=== PATIENT | male | born 1990 | race Caucasian/White ===

== ENCOUNTER 2016-03-23 21:38 | Emergency (ER) | payer SELFPAY ==
[2016-03-23] MEDS ORDERED: EPINEPHrine 1 MG/ML AMP ONE (21:42)
[2016-03-23] MEDS ORDERED: diphenhydrAMINE HCl 50 MG/ML 1 ML VIAL ONE (21:49)
[2016-03-23] MEDS ORDERED: methylPREDNISolone Sod Succ/PF 125 MG/2 ML VIAL ONE (21:49)
[2016-03-23] MEDS ORDERED: Famotidine In NaCl 20 mg/50 ml Premix Bag ONE (22:00)
--- NOTE | 2016-03-24 00:21 | ERRECORD ---
[facility] EMERGENCY RECORD HPI ALLERGY (21:57 LHOD) CHIEF COMPLAINT: Patient presents for evaluation of itching, Patient presents for evaluation of swelling, Patient presents for evaluation of rash. HISTORIAN: History provided by patient. TIME COURSE: PAST 10 MINUTES PT WAS SITTING WATCHING A MOVIE WHEN HE SUDDENLY HAD RASH, ITCHING AND SWELLING OF HIS LOWER LIP. DENIES PREVIOUS ALLERGIC REACTION. IS NOT AWARE ANYTHING STUNG HIM. NO NEW MEDICATION. ROS (22:03 LHOD) CONSTITUTIONAL: Historian denies fever. ENT: LOWER LIP SWELLING. CARDIOVASCULAR: Historian denies chest pain, reports edema. RESPIRATORY: Historian reports cough, denies shortness of breath. GI: Historian denies abdominal pain, denies nausea, denies vomiting. MUSCULOSKELETAL: Historian denies back pain, denies neck pain. SKIN: Historian reports pruritis, reports rash. NEUROLOGIC: Historian denies headache. HEMO/LYMPHATIC: Historian denies easy bruising. ALLERGIC/IMMUNOLOGIC: Historian denies food allergies, reports hives. NOTES: All systems reviewed, negative except as described above. PAST MEDICAL HISTORY MEDICAL HISTORY: No past medical history. (21:50 LPOL) MALE SURGICAL HISTORY: Patient has no surgical history. (21:50 LPOL) SOCIAL HISTORY: Patient is a former tobacco user, smoked cigarettes. (21:50 LPOL) NOTES: Nursing records reviewed. (22:04 LHOD) KNOWN ALLERGIES No Known Allergies CURRENT MEDICATIONS No recorded medications VITAL SIGNS VITAL SIGNS: BP: 143/73, Pulse: 117, Resp: 27, Temp: 98.9 (Oral), Time: 03/23/2016 21:48. (21:48 LPOL) BP: 143/79, Pulse: 99, Resp: 19, O2 sat: 97 on Room Air, Time: 03/23/2016 22:11. (22:11 LPOL) BP: 141/74, Pulse: 103, Resp: 17, O2 sat: 97 on Room Air, Time: 03/23/2016 22:29. (22:29 LPOL) BP: 126/70, Pulse: 100, Resp: 19, O2 sat: 97 on Room Air, Time: 03/23/2016 23:03. (23:03 LPOL) &a-1R&a+25V*p+0X*e9957T*c202B*c15G*c2P*p-0X&a-25V&a+1R Name: Coleman Beck : 1990 M26 MedRec: [id number] AcctNum: [id number] Prepared: ThuMar 24, 2016 01:52 by Interface Page 1 of 3 pMD [facility] EMERGENCY RECORD BP: 125/70, Pulse: 98, Resp: 18, O2 sat: 97 on Room Air, Time: 03/23/2016 23:33. (23:33 LPOL) PHYSICAL EXAM (22:04 LHOD) CONSTITUTIONAL: Vital Signs Reviewed, Patient afebrile, Pulse, tachycardic, Blood pressure normal, Respiratory rate, increased, Normal pulse oximetry, Patient alert and oriented to person, place and time. EYES: Pupils equally round and reactive to light, Extraocular muscles intact. ENT: Uvula, with mild edema, midline, LOWER LIP EDEMA. NECK: Neck exam included findings of normal range of motion, Trachea midline. RESPIRATORY CHEST: Respiratory exam included findings of no respiratory distress, Breath sounds clear, OCCASIONAL DRY COUGH. CARDIOVASCULAR: Cardiovascular exam included findings of heart rate regular rate and rhythm, Heart sounds normal. ABDOMEN MALE: Abdominal exam included findings of abdomen nontender. SKIN: Rash present, hives, URTICARIA COVERING FACE, TORSO, ARMS AND LEGS. UPPER BACK PT HAD SCRATCHED UNTIL IT BLED. MEDICATION ADMINISTRATION SUMMARY Drug Name: Zantac injection, Dose Ordered: 50 mg, Route: IV Push, Status: Canceled, Time: 22:01 03/23/2016, Drug Name: diphenhydrAMINE injection, Dose Ordered: 12.5 mg, Route: IV Push, Status: Given, Time: 22:34 03/23/2016, Drug Name: EPINEPHrine injection, Dose Ordered: 0.2 mL, Route: Subcutaneous, Status: Given, Time: 22:08 03/23/2016, Drug Name: Pepcid intravenous, Dose Ordered: 20 mg, Route: IV Piggy Back, Status: Given, Time: 22:04 03/23/2016, Drug Name: diphenhydrAMINE injection, Dose Ordered: 12.5 mg, Route: IV Push, Status: Given, Time: 21:52 03/23/2016, Drug Name: EPINEPHrine injection, Dose Ordered: 0.3 mL, Route: Subcutaneous, Status: Given, Time: 21:51 03/23/2016, Drug Name: methylPREDNISolone sodium succ injection, Dose Ordered: 125 mg, Route: IV Push, Status: Given, Time: 21:50 03/23/2016, Detailed record available in Medication Service section. DOCTOR NOTES (22:12 LHOD) TEXT: 2211--PT'S LIP LESS SWOLLEN. SOME DECREASE OF URTICARIA. 2229--PT'S STILL HAS URTICARIA, BUT MARKEDLY DIMINISHED SWELLING. 2302--CONTINUES TO IMPROVE. GIVEN APPLE JUICE. RESTING. UNKNOWN SOURCE OF PT'S ALLERGIC REACTION. NO KNOWN HX OF SHELLFISH, PEANUT OR OTHER ALLERGY. NO RECENT MEDICATION. &a-1R&a+25V*p+0X*j0312B*c202B*c15G*c2P*p-0X&a-25V&a+1R Name: Coleman Beck : 1990 M26 MedRec: [id number] AcctNum: [id number] Prepared: ThuMar 24, 2016 01:52 by Interface Page 2 of 3 pMD [facility] EMERGENCY RECORD PROBLEM LIST No recorded problems DIAGNOSIS (23:37 LHOD) FINAL: PRIMARY: ACUTE ALLERGIC REACTION WITH URTICARIA AND ANGIOEDEMA. PRESCRIPTION predniSONE oral: TABLET : 20 mg : ORAL : Quantity: 2 Unit: tab(s) Route: ORAL Schedule: once a day Dispense: 8 May substitute. Refills: No Refills . (23:38 LHOD) NOTES: No Refills. (23:38 LHOD) Epi E-Z Pen: AUTO-INJECTOR (EA) : 0.3 mg/0.3 mL (1:1,000) : INJECTION : Quantity: 1 Unit: units Route: INJECTION Schedule: As Needed Dispense: 1 May substitute. Refills: No Refills . (23:39 LHOD) NOTES: No Refills. (23:39 LHOD) DISPOSITION PATIENT: Disposition Type: Discharge, Disposition: *Discharge Home, Condition: Improved. (23:37 LHOD) Patient left the department. (23:50 LPOL) Brown: LHOD=MD Óscar, Joey LPOL=ANASTASIA Leon, Perlita &a-1R&a+25V*p+0X*g3178O*c202B*c15G*c2P*p-0X&a-25V&a+1R Name: Coleman Beck : 1990 M26 MedRec: [id number] AcctNum: [id number] Prepared: ThuMar 24, 2016 01:52 by Interface Page 3 of 3 pMD MTDD
--- NOTE | 2016-03-24 00:22 | PICIS ---
[facility] EMERGENCY RECORD TRIAGE (ThuMar 23, 2016 21:49 LPOL) TRIAGE NOTES: allergic reaction, rash and hives dyspnea x 10 minutes. (ThuMar 23, 2016 21:49 LPOL) PATIENT: NAME: Coleman Beck, AGE: 26, GENDER: male, : Thu1990, TIME OF GREET: ThuMar 23, 2016 21:39, PREFERRED LANGUAGE: Malagasy, ETHNICITY: Not or , ECODE BILLING MAP: [facility], KG WEIGHT: 78.02 (est.), , , PERSON ID: [id number], PCP: NO PCP. (ThuMar 23, 2016 21:49 LPOL) Zip Code: [address], PHONE: . (22:28) COMPLAINT: ALLERGIC REACTION. THROAT SWELLING. (ThuMar 23, 2016 21:49 LPOL) ADMISSION: URGENCY: 2 Emergent, ADMISSION SOURCE: Home, TRANSPORT: Walk-in, BED: TRIAGE. ([place] Mar 23, 2016 21:49 LPOL) SIRS SCORING: Heart Rate 110-139 (2), Temp range 96.8-101.1 (0), respiratory rate 12-24 (0), Mental Status altered: no (0), Total SIRS Score 2. (21:50 LPOL) TRIAGE SCREENING: Patient denies suicidal ideation, Patient denies presence of domestic violence. (21:50 LPOL) TREATMENTS IN PROGRESS: Treatments given Prehospital: Benadryl. (21:50 LPOL) PROVIDERS: TRIAGE NURSE: Perlita Leon RN. ([place] Mar 23, 2016 21:49 LPOL) VITAL SIGNS: BP 143/73, Pulse 117, Resp 27, Temp 98.9, (Oral), Time 03/23/2016 21:48. (21:48 LPOL) KNOWN ALLERGIES No Known Allergies CURRENT MEDICATIONS No recorded medications VITAL SIGNS VITAL SIGNS: BP: 143/73, Pulse: 117, Resp: 27, Temp: 98.9 (Oral), Time: 03/23/2016 21:48. (21:48 LPOL) BP: 143/79, Pulse: 99, Resp: 19, O2 sat: 97 on Room Air, Time: 03/23/2016 22:11. (22:11 LPOL) BP: 141/74, Pulse: 103, Resp: 17, O2 sat: 97 on Room Air, Time: 03/23/2016 22:29. (22:29 LPOL) BP: 126/70, Pulse: 100, Resp: 19, O2 sat: 97 on Room Air, Time: 03/23/2016 23:03. (23:03 LPOL) BP: 125/70, Pulse: 98, Resp: 18, O2 sat: 97 on Room Air, Time: 03/23/2016 23:33. (23:33 LPOL) NURSING ASSESSMENT: HEAD-TO-TOE (21:51 LPOL) CONSTITUTIONAL: Gait steady, History obtained from patient, Patient appears, in respiratory distress, Patient cooperative, Patient alert, Oriented to person, place and time, Skin warm, Skin, mottled. PAIN: pressure pain, chest. &a-1R&a+25V*p+0X*b9760K*c202B*c15G*c2P*p-0X&a-25V&a+1R Name: Coleman Beck : 1990 M26 MedRec: [id number] AcctNum: [id number] Prepared: ThuMar 24, 2016 01:59 by Interface Page 1 of 7 pMD [facility] EMERGENCY RECORD SKIN: Skin assessment findings include skin warm, Skin dry, Inspection findings include rash, red, hives, itchy, to generalized, Inspection findings include swelling, to face. NEURO: GCS:, Eye opening: (4) - Spontaneous, Verbal: (5) - Oriented/conversive, Motor: (6) - Obeys commands/Spontaneous, GCS Total: 15. RESPIRATORY/CHEST: Breath sounds clear, Respiratory assessment findings include respiratory effort easy, Respirations regular, Conversing normally, Neck and chest exam findings include trachea midline, Chest expansion equal, Chest movement symmetrical, Signs of distress, in mild distress, Deformity. CARDIOVASCULAR: Heart rhythm, sinus tachycardia. ABDOMEN: Abdomen soft, Bowel sound normal. PSYCH/SOCIAL: Psychiatric/social assessment findings include affect, anxious. NURSING PROCEDURE: DISCHARGE NOTE (23:49 LPOL) DISCHARGE: Patient discharged to home, ambulating without assistance, Summary of Care printed/ provided, Patient requested and was provided an electronic copy of Discharge Instructions, Transition record given to patient, Discharge instructions given to patient, Simple or moderate discharge teaching performed, by prabhakar, Prescriptions given and instructions on side effects given, Name of prescription(s) given: epipen, Above person(s) verbalized understanding of discharge instructions and follow-up care, Patient treated and evaluated by physician. BELONGINGS: Belongings and valuables with patient upon arrival to the Emergency Department include:, Belongings remain with patient, Valuables remain with patient. NURSING PROCEDURE: IV IV SITE 1: IV therapy indicated for medication administration, IV established, to the left hand, using a 20 gauge catheter, Flushed with normal saline (mls): 10, Notes: started by Ely OCONNOR. (22:11 LPOL) FOLLOW-UP SITE 1: IV discontinued, due to patient being discharged, catheter intact. (23:49 LPOL) MEDICATION ADMINISTRATION SUMMARY Drug Name: Zantac injection, Dose Ordered: 50 mg, Route: IV Push, Status: Canceled, Time: 22:01 03/23/2016, Drug Name: diphenhydrAMINE injection, Dose Ordered: 12.5 mg, Route: IV Push, Status: Given, Time: 22:34 03/23/2016, Drug Name: EPINEPHrine injection, Dose Ordered: 0.2 mL, Route: Subcutaneous, Status: Given, Time: 22:08 03/23/2016, Drug Name: Pepcid intravenous, Dose Ordered: 20 mg, Route: IV Piggy &a-1R&a+25V*p+0X*r2578X*c202B*c15G*c2P*p-0X&a-25V&a+1R Name: Coleman Beck : 1990 M26 MedRec: [id number] AcctNum: [id number] Prepared: ThuMar 24, 2016 01:59 by Interface Page 2 of 7 pMD [facility] EMERGENCY RECORD Back, Status: Given, Time: 22:04 03/23/2016, Drug Name: diphenhydrAMINE injection, Dose Ordered: 12.5 mg, Route: IV Push, Status: Given, Time: 21:52 03/23/2016, Drug Name: EPINEPHrine injection, Dose Ordered: 0.3 mL, Route: Subcutaneous, Status: Given, Time: 21:51 03/23/2016, Drug Name: methylPREDNISolone sodium succ injection, Dose Ordered: 125 mg, Route: IV Push, Status: Given, Time: 21:50 03/23/2016, Detailed record available in Medication Service section. MEDICATION SERVICE diphenhydrAMINE injection: Order: diphenhydrAMINE injection (diphenhydramine HCl) - Dose: 12.5 mg : IV Push Ordered by: Joey Cantrell MD Entered by: Joey Cantrell MD [place] Mar 23, 2016 21:50 Documented as given by: ANASTASIA Hidalgo Mar 23, 2016 21:52 Patient, Medication, Dose, Route and Time verified prior to administration. Amount given: 12.5 MG, IV SITE #1 IVP, initial medication, Slowly, Catheter placement confirmed via flush prior to administration, IV site without signs or symptoms of infiltration during medication administration, No swelling during administration, No drainage during administration, IV flushed after administration, Correct patient, time, route, dose and medication confirmed prior to administration, Patient advised of actions and side-effects prior to administration, Allergies confirmed and medications reviewed prior to administration, Patient in position of comfort, Side rails up, Cart in lowest position, Family at bedside. : Follow Up : Response assessment performed, No signs or symptoms of allergic reaction noted, Decreased symptoms, _IV SITE #1:_. (22:09 LPOL) diphenhydrAMINE injection: Order: diphenhydrAMINE injection (diphenhydramine HCl) - Dose: 12.5 mg : IV Push Ordered by: Joey Cantrell MD Entered by: Joey Cantrell MD [place] Mar 23, 2016 22:30 , Acknowledged by: ANASTASIA Riggs Mar 23, 2016 22:32 Documented as given by: ANASTASIA Riggs Mar 23, 2016 22:34 Patient, Medication, Dose, Route and Time verified prior to administration. Amount given: 12.5 g, IV SITE #1 IVP, repeat same medication, Slowly, Awake and alert- acceptable, Catheter placement confirmed via flush prior to administration, IV site without signs or symptoms of infiltration during medication administration, No swelling during administration, No drainage during administration, IV flushed after administration, Correct patient, time, route, dose and medication confirmed prior to administration, Patient advised of actions and side-effects prior to administration, Allergies confirmed and medications reviewed prior to administration. : Follow Up : Response assessment performed, No signs or symptoms of allergic reaction noted, Decreased symptoms, _IV SITE #1:_. (22:57 LPOL) &a-1R&a+25V*p+0X*k5123X*c202B*c15G*c2P*p-0X&a-25V&a+1R Name: Coleman Beck : 1990 M26 MedRec: [id number] AcctNum: [id number] Prepared: ThuMar 24, 2016 01:59 by Interface Page 3 of 7 pMD [facility] EMERGENCY RECORD EPINEPHrine injection: Order: EPINEPHrine injection (epinephrine) - Dose: 0.3 mL : Subcutaneous Ordered by: Joey Cantrell MD Entered by: MD Ursula Abdi Mar 23, 2016 21:49 Documented as given by: ANASTASIA Riggs Mar 23, 2016 21:51 Patient, Medication, Dose, Route and Time verified prior to administration. Amount given: 0.3 mg, Medication administered to right upper arm. : Follow Up : Response assessment performed, No signs or symptoms of allergic reaction noted, Decreased symptoms. (22:10 LPOL) EPINEPHrine injection: Order: EPINEPHrine injection (epinephrine) - Dose: 0.2 mL : Subcutaneous Ordered by: Joey Cantrell MD Entered by: MD Ursula Abdi Mar 23, 2016 22:01 , Acknowledged by: ANASTASIA Riggs Mar 23, 2016 22:03 Documented as given by: ANASTASIA Riggs Mar 23, 2016 22:08 Patient, Medication, Dose, Route and Time verified prior to administration. Amount given: 0.2 ml, Medication administered to left upper arm, Correct patient, time, route, dose and medication confirmed prior to administration, Patient advised of actions and side-effects prior to administration, Allergies confirmed and medications reviewed prior to administration. : Follow Up : Response assessment performed, No signs or symptoms of allergic reaction noted, Decreased symptoms. (22:36 LPOL) methylPREDNISolone sodium succ injection: Order: methylPREDNISolone sodium succ injection (methylprednisolone sod succ) - Dose: 125 mg : IV Push Ordered by: Joey Cantrell MD Entered by: MD Ursula Abdi Mar 23, 2016 21:50 Documented as given by: ANASTASIA Hidalgo Mar 23, 2016 21:50 Patient, Medication, Dose, Route and Time verified prior to administration. Amount given: 125 MG, IV SITE #1 IVP, initial medication, Slowly, Catheter placement confirmed via flush prior to administration, IV site without signs or symptoms of infiltration during medication administration, No swelling during administration, No drainage during administration, IV flushed after administration, Correct patient, time, route, dose and medication confirmed prior to administration, Patient advised of actions and side-effects prior to administration, Allergies confirmed and medications reviewed prior to administration, Patient in position of comfort, Side rails up, Cart in lowest position, Family at bedside. : Follow Up : Response assessment performed, No signs or symptoms of allergic reaction noted, Decreased symptoms, _IV SITE #1:_. (22:10 LPOL) Pepcid intravenous: Order: Pepcid intravenous (famotidine) - Dose: 20 mg : IV Piggy Back &a-1R&a+25V*p+0X*b4866S*c202B*c15G*c2P*p-0X&a-25V&a+1R Name: Coleman Beck : 1990 M26 MedRec: [id number] AcctNum: [id number] Prepared: ThuMar 24, 2016 01:59 by Interface Page 4 of 7 D [facility] EMERGENCY RECORD Ordered by: Joey Cantrell MD Entered by: MD Ursula Abdi Mar 23, 2016 22:02 Documented as given by: ANASTASIA Riggs Mar 23, 2016 22:04 Patient, Medication, Dose, Route and Time verified prior to administration. Amount given: 20 mg, IV SITE #1 IVPB or drip, initial infusion, via primary tubing, Awake and alert- acceptable, Catheter placement confirmed via flush prior to administration, IV site without signs or symptoms of infiltration during medication administration, No swelling during administration, No drainage during administration, IV flushed after administration, Correct patient, time, route, dose and medication confirmed prior to administration, Patient advised of actions and side-effects prior to administration, Allergies confirmed and medications reviewed prior to administration. : Follow Up : Response assessment performed, No signs or symptoms of allergic reaction noted, Decreased symptoms, _IV SITE #1:_, Medication infusion discontinued, on Sun Mar 23, 2016 22:10, 10 minutes, ., Total amount infused: 50, IV Line flushed after administration. (22:10 LPOL) (CANCELED) Zantac injection: Order: Zantac injection (ranitidine HCl) - Dose: 50 mg : IV Push Ordered by: Joey Cantrell MD Entered by: MD Ursula Abdi Mar 23, 2016 21:56 Canceled by: Joey Cantrell MD. [place] Mar 23, 2016 22:01 Cancel reason: Change in medication plan. HPI ALLERGY (21:57 LHOD) CHIEF COMPLAINT: Patient presents for evaluation of itching, Patient presents for evaluation of swelling, Patient presents for evaluation of rash. HISTORIAN: History provided by patient. TIME COURSE: PAST 10 MINUTES PT WAS SITTING WATCHING A MOVIE WHEN HE SUDDENLY HAD RASH, ITCHING AND SWELLING OF HIS LOWER LIP. DENIES PREVIOUS ALLERGIC REACTION. IS NOT AWARE ANYTHING STUNG HIM. NO NEW MEDICATION. ROS (22:03 LHOD) CONSTITUTIONAL: Historian denies fever. ENT: LOWER LIP SWELLING. CARDIOVASCULAR: Historian denies chest pain, reports edema. RESPIRATORY: Historian reports cough, denies shortness of breath. GI: Historian denies abdominal pain, denies nausea, denies vomiting. MUSCULOSKELETAL: Historian denies back pain, denies neck pain. SKIN: Historian reports pruritis, reports rash. NEUROLOGIC: Historian denies headache. HEMO/LYMPHATIC: Historian denies easy bruising. ALLERGIC/IMMUNOLOGIC: Historian denies food allergies, &a-1R&a+25V*p+0X*x3712B*c202B*c15G*c2P*p-0X&a-25V&a+1R Name: Coleman Beck : 1990 M26 MedRec: [id number] AcctNum: [id number] Prepared: ThuMar 24, 2016 01:59 by Interface Page 5 of 7 pMD [facility] EMERGENCY RECORD reports hives. NOTES: All systems reviewed, negative except as described above. PAST MEDICAL HISTORY MEDICAL HISTORY: No past medical history. (21:50 LPOL) MALE SURGICAL HISTORY: Patient has no surgical history. (21:50 LPOL) SOCIAL HISTORY: Patient is a former tobacco user, smoked cigarettes. (21:50 LPOL) NOTES: Nursing records reviewed. (22:04 LHOD) PHYSICAL EXAM (22:04 LHOD) CONSTITUTIONAL: Vital Signs Reviewed, Patient afebrile, Pulse, tachycardic, Blood pressure normal, Respiratory rate, increased, Normal pulse oximetry, Patient alert and oriented to person, place and time. EYES: Pupils equally round and reactive to light, Extraocular muscles intact. ENT: Uvula, with mild edema, midline, LOWER LIP EDEMA. NECK: Neck exam included findings of normal range of motion, Trachea midline. RESPIRATORY CHEST: Respiratory exam included findings of no respiratory distress, Breath sounds clear, OCCASIONAL DRY COUGH. CARDIOVASCULAR: Cardiovascular exam included findings of heart rate regular rate and rhythm, Heart sounds normal. ABDOMEN MALE: Abdominal exam included findings of abdomen nontender. SKIN: Rash present, hives, URTICARIA COVERING FACE, TORSO, ARMS AND LEGS. UPPER BACK PT HAD SCRATCHED UNTIL IT BLED. EVENTS TRANSFER: Triage to Emergency Triage. ([place] Mar 23, 2016 21:49 LPOL) Emergency Triage to Main ED -05. (21:49 LPOL) Removed from Emergency Main ED -05. (23:50 LPOL) DOCTOR NOTES (22:12 LHOD) TEXT: 2211--PT'S LIP LESS SWOLLEN. SOME DECREASE OF URTICARIA. 2229--PT'S STILL HAS URTICARIA, BUT MARKEDLY DIMINISHED SWELLING. 2302--CONTINUES TO IMPROVE. GIVEN APPLE JUICE. RESTING. UNKNOWN SOURCE OF PT'S ALLERGIC REACTION. NO KNOWN HX OF SHELLFISH, PEANUT OR OTHER ALLERGY. NO RECENT MEDICATION. PROBLEM LIST No recorded problems DIAGNOSIS (23:37 LHOD) &a-1R&a+25V*p+0X*d4874M*c202B*c15G*c2P*p-0X&a-25V&a+1R Name: Coleman Beck : 1990 M26 MedRec: [id number] AcctNum: [id number] Prepared: ThuMar 24, 2016 01:59 by Interface Page 6 of 7 pMD [facility] EMERGENCY RECORD FINAL: PRIMARY: ACUTE ALLERGIC REACTION WITH URTICARIA AND ANGIOEDEMA. DISPOSITION PATIENT: Disposition Type: Discharge, Disposition: *Discharge Home, Condition: Improved. (23:37 LHOD) Patient left the department. (23:50 LPOL) INSTRUCTION (23:40 LHOD) DISCHARGE: URTICARIA. FOLLOWUP: Follow up with Primary Care Physician as needed. SPECIAL: MAY CONTINUE BENADRYL 25MG EVERY 4 HOURS NEEDED FOR ITCHING. CONSIDER ALSO TAKING NON-SEDATING ANTI-HISTAMINE LIKE CLARITIN /LORATIDINE. *RETURN IF WORSE. PRESCRIPTION predniSONE oral: TABLET : 20 mg : ORAL : Quantity: 2 Unit: tab(s) Route: ORAL Schedule: once a day Dispense: 8 May substitute. Refills: No Refills . (23:38 LHOD) NOTES: No Refills. (23:38 LHOD) Epi E-Z Pen: AUTO-INJECTOR (EA) : 0.3 mg/0.3 mL (1:1,000) : INJECTION : Quantity: 1 Unit: units Route: INJECTION Schedule: As Needed Dispense: 1 May substitute. Refills: No Refills . (23:39 LHOD) NOTES: No Refills. (23:39 LHOD) IMAGING *DISCHARGE INSTRUCTIONS RECEIPT: Image captured from scanner. (23:48 LPOL) *SUPPLY CHARGE SHEET: Image captured from scanner. (23:49 LPOL) ADMIN (ThuMar 24, 2016 01:47 LHOD) DIGITAL SIGNATURE: MD Cantrell Lefayne. Brown: LHOD=MD Cantrell Lefayne LPOL=ANASTASIA Leon, Perlita &a-1R&a+25V*p+0X*u2440M*c202B*c15G*c2P*p-0X&a-25V&a+1R Name: Coleman Beck : 1990 M26 MedRec: [id number] AcctNum: [id number] Prepared: ThuMar 24, 2016 01:59 by Interface Page 7 of 7 pMD MTDD
== END 2016-03-23 23:47 | disposition home or self-care (01) ==
LOC: MADERS 21:38
DX: T78.3XXA Angioneurotic edema, initial encounter (principal); F17.210 Nicotine dependence, cigarettes, uncomplicated
CPT/HCPCS: 96372; 96374; 96375; 96376; J0171; J1200; J2930

== ENCOUNTER 2016-04-01 13:57 | Emergency (ER) | payer SELFPAY ==
[2016-04-01] MEDS ORDERED: Dexamethasone 4 MG TAB ONE (14:22)
[2016-04-01] MEDS ORDERED: Famotidine 20 MG TAB ONE (14:22)
--- NOTE | 2016-04-01 15:41 | ERRECORD ---
[facility] EMERGENCY RECORD HPI ALLERGY (14:20 ABUS) CHIEF COMPLAINT: Patient presents for evaluation of itching, Patient presents for evaluation of rash. 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 No SOB, lip or tongue swelling, and no apparent exposure to a source. The patient is also having a sore throat. LOCATION: Symptoms are generalized. QUALITY: Dermal only. SEVERITY: Currently symptoms are mild. TIME COURSE: Sudden onset of symptoms, just prior to arrival, Symptoms are constant. ASSOCIATED WITH: No associated symptoms. EXACERBATED BY: Patient's condition exacerbated by nothing. RISK FACTORS: Patient has had previous allergy reactions, 1-2 weeks ago. ROS (14:22 ABUS) CONSTITUTIONAL: Negative constitutional review of systems, Historian denies chills, denies fever. ENT: Historian denies drooling, denies dysphonia, denies otalgia, denies rhinorrhea, reports sore throat, denies stridor, denies voice changes. CARDIOVASCULAR: Negative cardiovascular review of systems, Historian denies chest pain, denies palpitations. RESPIRATORY: Negative respiratory review of systems, Historian denies cough, denies shortness of breath. GI: Negative gastrointestinal review of systems, Historian denies abdominal pain, denies constipation, denies diarrhea, denies nausea, denies vomiting. MUSCULOSKELETAL: Negative musculoskeletal review of systems, Historian denies back pain, denies fall, denies injury, denies neck pain. SKIN: Historian reports rash, reports skin changes, denies skin lesions. NEUROLOGIC: Negative neurologic review of systems, Historian denies headache. PAST MEDICAL HISTORY (14:04 SFRE) MEDICAL HISTORY: No past medical history. MALE SURGICAL HISTORY: Patient has no surgical history. SOCIAL HISTORY: Patient is a former tobacco user, smoked cigarettes. KNOWN ALLERGIES No Known Allergies CURRENT MEDICATIONS No recorded medications &a-1R&a+25V*p+0X*e7122H*c202B*c15G*c2P*p-0X&a-25V&a+1R Name: Coleman Beck : 1990 M26 MedRec: [id number] AcctNum: [id number] Prepared: barbara Apr 01, 2016 17:02 by Interface Page [address] [facility] EMERGENCY RECORD VITAL SIGNS (14:02 SFRE) VITAL SIGNS: BP: 137/69, Pulse: 106, Resp: 18, Temp: 99.2 (Tympanic), Pain: 8 (not applicable), O2 sat: 99 on Room Air, Time: 04/01/2016 14:02. PHYSICAL EXAM CONSTITUTIONAL: Vital signs reviewed, Patient afebrile, Pulse normal, Blood pressure normal, Respiratory rate normal, Patient appears non toxic, Patient appears pain free, Patient alert and oriented to person, place and time. (14:22 ABUS) ENT: Ear exam normal, external ear normal, tympanic membranes normal, Nose exam normal, no nasal deformity, no bleeding from nares, Pharynx exam normal, Uvula exam normal, midline, no edema, Tonsils, enlarged right greater than left, without exudates, No trismus, Mouth exam normal, mucous membranes moist, no drooling, no lesions, no lacerations, no tongue elevation, teeth normal, Sinus exam included findings of frontal sinuses normal, no tenderness. (14:23 ABUS) NECK: Neck exam normal, Neck exam included findings of normal range of motion, Trachea midline, no meningeal signs, no cervical adenopathy, no tenderness. (14:22 ABUS) RESPIRATORY CHEST: Respiratory and chest exam normal, Respiratory exam included findings of no respiratory distress, Breath sounds clear. (14:22 ABUS) CARDIOVASCULAR: Cardiovascular assessment normal, Cardiovascular exam included findings of heart rate regular rate and rhythm, Heart sounds normal. (14:22 ABUS) ABDOMEN MALE: Abdominal exam included findings of abdomen nontender, Bowel sounds normal, no distension, no mass, no pulsatile masses, no peritoneal signs, no rigidity, no guarding, no rebound, Rovsing's sign absent. (14:22 ABUS) BACK: Back exam normal, Back exam included findings of normal inspection, range of motion normal, no tenderness. (14:22 ABUS) NEURO: Neuro exam normal, Neuro exam findings include patient oriented to person, place and time, Speech normal, Gait normal. (14:22 ABUS) SKIN: Skin exam included findings of skin warm, Rash present, hives, No cellulitis present. (14:22 ABUS) MEDICATION ADMINISTRATION SUMMARY Drug Name: famotidine oral, Dose Ordered: 40 mg, Route: Oral, Status: Given, Time: 14:25 04/01/2016, Drug Name: dexamethasone, Dose Ordered: 10 mg, Route: Oral, Status: Given, Time: 14:25 04/01/2016, Detailed record available in Medication Service section. DOCTOR NOTES (14:23 ABUS) TEXT: 26 yr old M with no PMH who comes in with reports of &a-1R&a+25V*p+0X*q4508T*c202B*c15G*c2P*p-0X&a-25V&a+1R Name: Coleman Beck : 1990 M26 MedRec: [id number] AcctNum: [id number] Prepared: Nanci Apr 01, 2016 17:02 by Interface Page [address] 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 DDX: Anaphylaxis, Allergies, Allergic Rhinitis, Dry Skin, Eczema, Cellulitis, PLAN: Benadryl, H2RA, Steroids, Monitoring DISPO: Pending results and response to treatment UPDATE/REASSESSMENT: Rash and itching improved. Patient wants to go home and feels better. Final Dispo: Home with abx for pharyngitis, steroids, follow up and return precautions and also counseling on how to use a EPI pen and importance of proper technique which the patient verbalized understanding and agreement. All other pertinent results of testing and evaluation were shared with the patient who verbalized understanding and agreement with the plan of care. Level of Complexity / Medical Decision Making: Moderate High. PROBLEM LIST No recorded problems DIAGNOSIS (15:19 ABUS) FINAL: PRIMARY: Allergic reaction, ADDITIONAL: URTICARIA UNSPECIFIED. PRESCRIPTION (15:18 ABUS) amoxicillin: CAPSULE : 500 mg : ORAL : Quantity: 1 Unit: cap(s) Route: ORAL Schedule: 3 times a day Dispense: 21 Unit: cap(s) May substitute. Refills: No Refills . NOTES: No Refills. predniSONE oral: TABLET : 20 mg : ORAL : Quantity: 40 Unit: mg Route: ORAL Schedule: once a day Dispense: * May substitute. Refills: No Refills . NOTES: enough for 4 days. No refills. No Refills. DISPOSITION PATIENT: Disposition Type: Discharge, Disposition: *Discharge Home, Condition: Good. (15:19 ABUS) Patient left the department. (15:32 JUSTINE) Brown: ABUS=MD Kyler, Yariel SFRE=ANASTASIA Doe, Cait &a-1R&a+25V*p+0X*p9332O*c202B*c15G*c2P*p-0X&a-25V&a+1R Name: Coleman Beck : 1990 M26 MedRec: [id number] AcctNum: [id number] Prepared: Nanci Apr 01, 2016 17:02 by Interface Page 3 of 3 pMD MTDD
--- NOTE | 2016-04-01 15:45 | PICIS ---
[facility] EMERGENCY RECORD TRIAGE (14:03 SFRE) TRIAGE NOTES: ALLERGIC REACTION TO UNKNOWN SUBSTANCE. (14:03 SFRE) PATIENT: NAME: Coleman Beck, AGE: 26, GENDER: male, : Thu1990, TIME OF GREET: ThuApr 01, 2016 13:58, PREFERRED LANGUAGE: Greenlandic, ETHNICITY: Not or , ECODE BILLING MAP: [facility], SSN: [id number], Zip Code: [address], KG WEIGHT: 79.38, PHONE: , , , PERSON ID: [id number], PCP: NONE. (14:03 SFRE) COMPLAINT: ALLERGIC REACTION. (14:03 SFRE) ADMISSION: URGENCY: 4 Non Urgent, ADMISSION SOURCE: Rehab, TRANSPORT: Walk-in, BED: ED -03. (14:03 SFRE) IMMUNIZATIONS: Flu vaccine not up to date. (14:04 SFRE) SIRS SCORING: Heart Rate 55-109 (0), Temp range 96.8-101.1 (0), respiratory rate 12-24 (0), Mental Status altered: no (0). (14:04 SFRE) TRIAGE SCREENING: Patient denies suicidal ideation, Patient denies presence of domestic violence. (14:04 SFRE) PROVIDERS: TRIAGE NURSE: Cait Doe RN. (14:03 SFRE) VITAL SIGNS: BP 137/69, Pulse 106, Resp 18, Temp 99.2, (Tympanic), Pain 8, (not applicable), O2 Sat 99, on Room Air, Time 04/01/2016 14:02. (14:02 SFRE) PREVIOUS VISIT ALLERGIES: No Known Allergies. (14:03 SFRE) No Known Allergies. (14:04 SFRE) KNOWN ALLERGIES No Known Allergies CURRENT MEDICATIONS No recorded medications VITAL SIGNS (14:02 SFRE) VITAL SIGNS: BP: 137/69, Pulse: 106, Resp: 18, Temp: 99.2 (Tympanic), Pain: 8 (not applicable), O2 sat: 99 on Room Air, Time: 04/01/2016 14:02. NURSING ASSESSMENT: SKIN (14:26 SFRE) CONSTITUTIONAL: Patient arrives ambulatory, Gait steady, History obtained from patient, Patient appears comfortable, Patient cooperative, Patient alert, Oriented to person, place and time, Skin warm, Skin dry, Skin normal in color, Mucous membranes pink, Mucous membranes moist, Patient is well-groomed, Patient complains of ALLERGIC REACTION. 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 SKIN: Skin assessment findings include skin warm, Skin dry, Skin normal in color, Inspection findings include rash, &a-1R&a+25V*p+0X*o8124N*c202B*c15G*c2P*p-0X&a-25V&a+1R Name: Coleman Beck : 1990 M26 MedRec: [id number] AcctNum: [id number] Prepared: ThuApr 01, 2016 17:02 by Interface Page 1 of 6 pMD [facility] EMERGENCY RECORD red, hives, itchy, without pustules, without drainage, to GENERALIZED. SAFETY: Side rails up, Cart/Stretcher in lowest position, Call light within reach, Hospital ID band on. NURSING PROCEDURE: DISCHARGE NOTE (15:25 SFRE) DISCHARGE: Patient discharged to home, ambulating without assistance, friend driving, unaccompanied, Summary of Care printed/ provided, Patient requested and was provided an electronic copy of Discharge Instructions, Discharge instructions given to patient, Simple or moderate discharge teaching performed, by ANASTASIA CHOWDHURY, F/U WITH PCP. RX DIRECTED. RETURN TO ED NEEDED FOR NEW/CONCERNING OR WORSENING SYMPTOMS., Prescriptions given and instructions on side effects given, Name of prescription(s) given: PREDNISONE, AMOXICILLIN, Above person(s) verbalized understanding of discharge instructions and follow-up care. NURSING PROCEDURE: NURSE NOTES NURSES NOTES: Patient is improving, Patient in no apparent distress, Patient resting quietly. (14:53 SFRE) Notes: IMPROVING, NO NEEDS AT THIS TIME. (15:06 SFRE) MEDICATION ADMINISTRATION SUMMARY Drug Name: famotidine oral, Dose Ordered: 40 mg, Route: Oral, Status: Given, Time: 14:25 04/01/2016, Drug Name: dexamethasone, Dose Ordered: 10 mg, Route: Oral, Status: Given, Time: 14:25 04/01/2016, Detailed record available in Medication Service section. MEDICATION SERVICE dexamethasone: Order: dexamethasone - Dose: 10 mg : Oral Schedule: Now Ordered by: Yariel Chávez MD Entered by: Yariel Chávez MD ThuApr 01, 2016 14:18 , Acknowledged by: Cait Doe RN ThuApr 01, 2016 14:19 Documented as given by: Cait Doe RN ThuApr 01, 2016 14:25 Patient, Medication, Dose, Route and Time verified prior to administration. Amount given: 10MG, Amount wasted: 2MG, Site: Medication administered P.O., Correct patient, time, route, dose and medication confirmed prior to administration, Patient advised of actions and side-effects prior to administration, Allergies confirmed and medications reviewed prior to administration, Patient in position of comfort, Side rails up, Cart in lowest position, Family at bedside. : Follow Up : Response assessment performed, No signs or symptoms of allergic reaction noted, Decreased symptoms, Decreased rash. (14:52 SFRE) famotidine oral: Order: famotidine oral (famotidine) - &a-1R&a+25V*p+0X*x1062A*c202B*c15G*c2P*p-0X&a-25V&a+1R Name: Coleman Beck : 1990 M26 MedRec: [id number] AcctNum: [id number] Prepared: ThuApr 01, 2016 17:02 by Interface Page 2 of 6 pMD [facility] EMERGENCY RECORD Dose: 40 mg : Oral Schedule: Now Ordered by: Yariel Chávez MD Entered by: Yariel Chávez MD ThuApr 01, 2016 14:17 , Acknowledged by: Cait Doe RN ThuApr 01, 2016 14:19 Documented as given by: Cait Doe RN ThuApr 01, 2016 14:25 Patient, Medication, Dose, Route and Time verified prior to administration. Amount given: 40MG, Site: Medication administered P.O., Correct patient, time, route, dose and medication confirmed prior to administration, Patient advised of actions and side-effects prior to administration, Allergies confirmed and medications reviewed prior to administration, Patient in position of comfort, Side rails up, Cart in lowest position, Family at bedside. : Follow Up : Response assessment performed, No signs or symptoms of allergic reaction noted, Decreased symptoms, Decreased rash. (14:53 SFRE) HPI ALLERGY (14:20 ABUS) CHIEF COMPLAINT: Patient presents for evaluation of itching, Patient presents for evaluation of rash. 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 He also took benadrly 45 mins ago. No SOB, lip or tongue swelling, and no apparent exposure to a source. The patient is also having a sore throat. LOCATION: Symptoms are generalized. QUALITY: Dermal only. SEVERITY: Currently symptoms are mild. TIME COURSE: Sudden onset of symptoms, just prior to arrival, Symptoms are constant. ASSOCIATED WITH: No associated symptoms. EXACERBATED BY: Patient's condition exacerbated by nothing. RISK FACTORS: Patient has had previous allergy reactions, 1-2 weeks ago. ROS (14:22 ABUS) CONSTITUTIONAL: Negative constitutional review of systems, Historian denies chills, denies fever. ENT: Historian denies drooling, denies dysphonia, denies otalgia, denies rhinorrhea, reports sore throat, denies stridor, denies voice changes. CARDIOVASCULAR: Negative cardiovascular review of systems, Historian denies chest pain, denies palpitations. RESPIRATORY: Negative respiratory review of systems, Historian denies cough, denies shortness of breath. GI: Negative gastrointestinal review of systems, Historian denies abdominal pain, denies constipation, denies diarrhea, denies nausea, denies vomiting. MUSCULOSKELETAL: Negative musculoskeletal review of systems, Historian denies back pain, denies fall, denies injury, denies neck &a-1R&a+25V*p+0X*h6132G*c202B*c15G*c2P*p-0X&a-25V&a+1R Name: Coleman Beck Radha : 1990 M26 MedRec: [id number] AcctNum: [id number] Prepared: Nanci Apr 01, 2016 17:02 by Interface Page 3 of 6 pMD [facility] EMERGENCY RECORD pain. SKIN: Historian reports rash, reports skin changes, denies skin lesions. NEUROLOGIC: Negative neurologic review of systems, Historian denies headache. PAST MEDICAL HISTORY (14:04 SFRE) MEDICAL HISTORY: No past medical history. MALE SURGICAL HISTORY: Patient has no surgical history. SOCIAL HISTORY: Patient is a former tobacco user, smoked cigarettes. PHYSICAL EXAM CONSTITUTIONAL: Vital signs reviewed, Patient afebrile, Pulse normal, Blood pressure normal, Respiratory rate normal, Patient appears non toxic, Patient appears pain free, Patient alert and oriented to person, place and time. (14:22 ABUS) ENT: Ear exam normal, external ear normal, tympanic membranes normal, Nose exam normal, no nasal deformity, no bleeding from nares, Pharynx exam normal, Uvula exam normal, midline, no edema, Tonsils, enlarged right greater than left, without exudates, No trismus, Mouth exam normal, mucous membranes moist, no drooling, no lesions, no lacerations, no tongue elevation, teeth normal, Sinus exam included findings of frontal sinuses normal, no tenderness. (14:23 ABUS) NECK: Neck exam normal, Neck exam included findings of normal range of motion, Trachea midline, no meningeal signs, no cervical adenopathy, no tenderness. (14:22 ABUS) RESPIRATORY CHEST: Respiratory and chest exam normal, Respiratory exam included findings of no respiratory distress, Breath sounds clear. (14:22 ABUS) CARDIOVASCULAR: Cardiovascular assessment normal, Cardiovascular exam included findings of heart rate regular rate and rhythm, Heart sounds normal. (14:22 ABUS) ABDOMEN MALE: Abdominal exam included findings of abdomen nontender, Bowel sounds normal, no distension, no mass, no pulsatile masses, no peritoneal signs, no rigidity, no guarding, no rebound, Rovsing's sign absent. (14:22 ABUS) BACK: Back exam normal, Back exam included findings of normal inspection, range of motion normal, no tenderness. (14:22 ABUS) NEURO: Neuro exam normal, Neuro exam findings include patient oriented to person, place and time, Speech normal, Gait normal. (14:22 ABUS) SKIN: Skin exam included findings of skin warm, Rash present, hives, No cellulitis present. (14:22 ABUS) EVENTS TRANSFER: Triage to Emergency Main ED -03. (ThuApr 01, 2016 14:03 SFRE) &a-1R&a+25V*p+0X*v1776W*c202B*c15G*c2P*p-0X&a-25V&a+1R Name: Coleman Beck : 1990 M26 MedRec: [id number] AcctNum: [id number] Prepared: ThuApr 01, 2016 17:02 by Interface Page 4 of 6 pMD [facility] EMERGENCY RECORD Removed from Emergency Main ED -03. 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 DDX: Anaphylaxis, Allergies, Allergic Rhinitis, Dry Skin, Eczema, Cellulitis, PLAN: Benadryl, H2RA, Steroids, Monitoring DISPO: Pending results and response to treatment UPDATE/REASSESSMENT: Rash and itching improved. Patient wants to go home and feels better. Final Dispo: Home with abx for pharyngitis, steroids, follow up and return precautions and also counseling on how to use a EPI pen and importance of proper technique which the patient verbalized understanding and agreement. All other pertinent results of testing and evaluation were shared with the patient who verbalized understanding and agreement with the plan of care. Level of Complexity / Medical Decision Making: Moderate High. PROBLEM LIST No recorded problems DIAGNOSIS (15:19 ABUS) FINAL: PRIMARY: Allergic reaction, ADDITIONAL: URTICARIA UNSPECIFIED. DISPOSITION PATIENT: Disposition Type: Discharge, Disposition: *Discharge Home, Condition: Good. (15:19 ABUS) Patient left the department. (15:32 SFRE) INSTRUCTION (15:20 ABUS) DISCHARGE: ALLERGIC REACTION, OTHER (GENERAL), URTICARIA. FOLLOWUP: [facility], /[facility], [address] [place] [address], , Follow up with Primary Care Physician in 1-2 days. SPECIAL: As discussed in the ED, please keep any upcoming appointments with your primary doctor or call the referral provided to you today to establish a follow up evaluation or ongoing medical care. Please come back if you start to have fever, vomiting, itching, rash, chest pain, chest tightness, shortness of breath, or any symptoms that concern you. PRESCRIPTION (15:18 ABUS) amoxicillin: CAPSULE : 500 mg : ORAL : Quantity: 1 Unit: cap(s) Route: ORAL Schedule: 3 times a day Dispense: 21 Unit: cap(s) &a-1R&a+25V*p+0X*n9413N*c202B*c15G*c2P*p-0X&a-25V&a+1R Name: Coleman Beck : 1990 M26 MedRec: [id number] AcctNum: [id number] Prepared: ThuApr 01, 2016 17:02 by Interface Page 5 of 6 pMD [facility] EMERGENCY RECORD May substitute. Refills: No Refills . NOTES: No Refills. predniSONE oral: TABLET : 20 mg : ORAL : Quantity: 40 Unit: mg Route: ORAL Schedule: once a day Dispense: * May substitute. Refills: No Refills . NOTES: enough for 4 days. No refills. No Refills. IMAGING (15:27 SFRE) *DISCHARGE INSTRUCTIONS RECEIPT: Image captured from scanner. Page 2 added. Image captured from scanner. *SUPPLY CHARGE SHEET: Image captured from scanner. ADMIN (17:00 ABUS) DIGITAL SIGNATURE: MD Chávez Anthony. Brown: ABUS=MD Chávez Anthony SFRE=ANASTASIA Doe, Cait &a-1R&a+25V*p+0X*f4859E*c202B*c15G*c2P*p-0X&a-25V&a+1R Name: Coleman Beck : 1990 M26 MedRec: [id number] AcctNum: [id number] Prepared: ThuApr 01, 2016 17:02 by Interface Page 6 of 6 pMD MTDD
== END 2016-04-01 15:25 | disposition home or self-care (01) ==
LOC: MADERS 13:57
DX: L50.0 Allergic urticaria (principal)
CPT/HCPCS: 99284; J8540

== ENCOUNTER 2016-04-22 19:50 | Emergency (ER) | payer SELFPAY ==
[2016-04-22] MEDS ORDERED: Dexamethasone 10 MG/ML VIAL ONE (19:57)
[2016-04-22] MEDS ORDERED: EPINEPHrine 1 MG/ML AMP ONE (19:57)
[2016-04-22] MEDS ORDERED: Sterile Water 10 ML ONE (19:57)
[2016-04-22] MEDS ORDERED: methylPREDNISolone Sod Succ/PF 125 MG/2 ML VIAL ONE (19:57)
[2016-04-22] MEDS ORDERED: diphenhydrAMINE HCl 50 MG/ML 1 ML VIAL ONE (19:57)
--- NOTE | 2016-04-22 22:11 | ERRECORD ---
[facility] EMERGENCY RECORD HPI RASH (20:35 ALMPriscilla) CHIEF COMPLAINT: Patient presents for evaluation of allergic reaction, unknown exposure, Patient presents for evaluation of pruritis. HISTORIAN: History provided by patient. LOCATION: Symptoms are generalized. QUALITY: Rash described as itchy, Rash described as raised. SEVERITY: Maximum severity of symptoms moderate, Currently symptoms are moderate. PAST MEDICAL HISTORY (ThuApr 22, 2016 19:55 MDEB) MEDICAL HISTORY: No past medical history. MALE SURGICAL HISTORY: Patient has no surgical history. SOCIAL HISTORY: Patient is a former tobacco user, smoked cigarettes. KNOWN ALLERGIES No Known Allergies (Unconfirmed) CURRENT MEDICATIONS No recorded medications VITAL SIGNS (19:54 MDEB) VITAL SIGNS: BP: 152/70, Pulse: 106, Resp: 20, Temp: 97.7 (Tympanic), O2 sat: 98 on Room Air, Time: 04/22/2016 19:54. MEDICATION ADMINISTRATION SUMMARY Drug Name: diphenhydrAMINE injection, Dose Ordered: 50 mg, Route: IV Push, Status: Given, Time: 20:05 04/22/2016, Detailed record available in Medication Service section. PROBLEM LIST No recorded problems DIAGNOSIS (22:02 MDEB) FINAL: PRIMARY: ALLERGIC URTICARIA. PRESCRIPTION No recorded prescriptions DISPOSITION (22:02 MDEB) PATIENT: Disposition Type: Discharge, Disposition: *Discharge Home, Patient left the department. Brown: BLANQUITA=MD Will, Jareth ESPINOZAEB=ANASTASIA Wren, Ely &a-1R&a+25V*p+0X*z7258B*c202B*c15G*c2P*p-0X&a-25V&a+1R Name: Coleman Beck : 1990 M26 MedRec: [id number] AcctNum: [id number] Prepared: ThuApr 22, 2016 22:08 by Interface Page 1 of 1 pMD MTDD
--- NOTE | 2016-04-22 22:20 | PICIS ---
[facility] EMERGENCY RECORD TRIAGE (ThuApr 22, 2016 19:55 MDEB) PATIENT: NAME: Coleman Beck, AGE: 26, GENDER: male, : Thu1990, TIME OF GREET: ThuApr 22, 2016 19:50, PREFERRED LANGUAGE: Syriac, RACE: WHITE, ETHNICITY: Not or , ECODE BILLING MAP: [facility], SSN: [id number], Zip Code: [address], KG WEIGHT: 80.74, PHONE: , , , PERSON ID: [id number], PCP: NO PCP. (ThuApr 22, 2016 19:55 MDEB) TRIAGE NOTES: HIVES - PT THINKS IT WAS THE OPE [employer]ITE WOOD[employer]Y WERE COOKING WITH. (ThuApr 22, 2016 19:55 MDEB) COMPLAINT: ALLERGIC REACTION. (ThuApr 22, 2016 19:55 MDEB) ADMISSION: URGENCY: 3 Urgent, ADMISSION SOURCE: Home, TRANSPORT: Walk-in, BED: TRIAGE. (ThuApr 22, 2016 19:55 MDEB) IMMUNIZATIONS: Tetanus immunization up to date. (ThuApr 22, 2016 19:55 MDEB) TRIAGE SCREENING: Patient denies suicidal ideation, Patient denies presence of domestic violence. (ThuApr 22, 2016 19:55 MDEB) PROVIDERS: TRIAGE NURSE: Ely Wren RN. (ThuApr 22, 2016 19:55 MDEB) VITAL SIGNS: BP 152/70, Pulse 106, Resp 20, Temp 97.7, (Tympanic), O2 Sat 98, on Room Air, Time 04/22/2016 19:54. (19:54 MDEB) PREVIOUS VISIT ALLERGIES: No Known Allergies. (ThuApr 22, 2016 19:55 MDEB) KNOWN ALLERGIES No Known Allergies (Unconfirmed) CURRENT MEDICATIONS No recorded medications VITAL SIGNS (19:54 MDEB) VITAL SIGNS: BP: 152/70, Pulse: 106, Resp: 20, Temp: 97.7 (Tympanic), O2 sat: 98 on Room Air, Time: 04/22/2016 19:54. NURSING ASSESSMENT: ALLERGIC REACTION (19:55 MDEB) CONSTITUTIONAL: Patient arrives ambulatory, Gait steady, History obtained from patient, Patient appears, anxious, Patient cooperative, Patient alert, Oriented to person, place and time, Skin warm, Skin dry, Skin normal in color, Mucous membranes pink, Mucous membranes moist, Patient is well-groomed, Patient complains of HIVES OVER ENTIRE BODY, PT SUSPECTS MESQUITE THEY WERE COOKING WITH. ALLERGIC REACTION: Past episodes of allergic reactions, to unknown allergen, 3RD TIME IN 4 WKS, Allergic reaction symptoms include hives. RESPIRATORY: Breath sounds clear, Respiratory assessment findings include respiratory effort easy, Respirations regular, Conversing normally, Neck and chest exam findings include trachea midline, Chest expansion equal, Chest movement symmetrical. &a-1R&a+25V*p+0X*d0026Q*c202B*c15G*c2P*p-0X&a-25V&a+1R Name: Coleman Beck : 1990 M26 MedRec: [id number] AcctNum: [id number] Prepared: Nanci Apr 22, 2016 22:15 by Interface Page 1 of 4 pMD [facility] EMERGENCY RECORD SKIN: Skin assessment findings include skin warm, Skin dry, Skin normal in color, Inspection findings include rash, pale, hives, itchy. NOTES: Emotional support needed and given, Patient tolerated procedure well. SAFETY: Side rails up, Cart/Stretcher in lowest position, Family at bedside, Call light within reach, Hospital ID band on. NURSING PROCEDURE: DISCHARGE NOTE (21:50 MDEB) DISCHARGE: Patient discharged to home, ambulating without assistance, friend driving, accompanied by friend, Patient requested and was provided an electronic copy of Discharge Instructions, Simple or moderate discharge teaching performed, TAKING BENADRYL EVERY 6 HRS X 2 DAYS, Above person(s) verbalized understanding of discharge instructions and follow-up care, Patient treated and evaluated by physician. BELONGINGS: Belongings remain with patient, Valuables remain with patient. NOTES: Emotional support needed and given, Patient tolerated procedure well. NURSING PROCEDURE: IV (20:00 MDEB) PATIENT IDENITIFIER: Patient actively involved in identification process, Patient's identity verified by patient stating name, Patient's identity verified by hospital ID bracelet. IV SITE 1: IV therapy indicated for medication administration, IV established, to the left hand, using an 18 gauge catheter, in two attempts, IV site prepped with CHLOROPREP, Saline lock established, Flushed with normal saline (mls): 10. FOLLOW-UP SITE 1: After procedure, sterile transparent dressing applied. NOTES: Emotional support needed and given, Patient tolerated procedure well. NURSING PROCEDURE: NURSE NOTES NURSES NOTES: Notes: HIVES STILL VERY PROMINANT AT THIS TIME. (20:20 JARRED) Notes: DR SOLIS REPORTS PT IT SIGNIFICANTLY IMPROVED. (20:35 JARRED) ORDER DETAILS Order Name: SALINE LOCK, Status: Done, Time: 20:56 04/22/2016, User: JARRED, - Ordered for: MD Will, Jareth, - Entered by: ANASTASIA Wren, Ely - ThuApr 22, 2016 20:56, - Quantity: 1. MEDICATION ADMINISTRATION SUMMARY &a-1R&a+25V*p+0X*m0966C*c202B*c15G*c2P*p-0X&a-25V&a+1R Name: Coleman Beck : 1990 M26 MedRec: [id number] AcctNum: [id number] Prepared: ThuApr 22, 2016 22:15 by Interface Page 2 of 4 pMD [facility] EMERGENCY RECORD Drug Name: diphenhydrAMINE injection, Dose Ordered: 50 mg, Route: IV Push, Status: Given, Time: 20:05 04/22/2016, Detailed record available in Medication Service section. MEDICATION SERVICE (20:05 OPELOUSAS) diphenhydrAMINE injection: Order: diphenhydrAMINE injection (diphenhydramine HCl) - Dose: 50 mg : IV Push Schedule: Now Ordered by: Jareth Solis MD Entered by: Ely Wren RN ThuApr 22, 2016 20:12 Documented as given by: Ely Wren RN ThuApr 22, 2016 20:05 Patient, Medication, Dose, Route and Time verified prior to administration. Amount given: 50 MG, IV SITE #1 IVP, initial medication, Slowly, Catheter placement confirmed via flush prior to administration, IV site without signs or symptoms of infiltration during medication administration, No swelling during administration, No drainage during administration, IV flushed after administration, Correct patient, time, route, dose and medication confirmed prior to administration, Patient advised of actions and side-effects prior to administration, Allergies confirmed and medications reviewed prior to administration, Patient in position of comfort, Side rails up, Cart in lowest position, Family at bedside. HPI RASH (20:35 ALMPriscilla) CHIEF COMPLAINT: Patient presents for evaluation of allergic reaction, unknown exposure, Patient presents for evaluation of pruritis. HISTORIAN: History provided by patient. LOCATION: Symptoms are generalized. QUALITY: Rash described as itchy, Rash described as raised. SEVERITY: Maximum severity of symptoms moderate, Currently symptoms are moderate. PAST MEDICAL HISTORY (ThuApr 22, 2016 19:55 MDEB) MEDICAL HISTORY: No past medical history. MALE SURGICAL HISTORY: Patient has no surgical history. SOCIAL HISTORY: Patient is a former tobacco user, smoked cigarettes. EVENTS TRANSFER: Triage to Emergency Triage. (19:55 MDEB) Emergency Triage to Main ED -03. (20:07 MDEB) Removed from Emergency Main ED -03. (22:02 MDEB) PROBLEM LIST No recorded problems DIAGNOSIS (22:02 MDEB) FINAL: PRIMARY: ALLERGIC URTICARIA. &a-1R&a+25V*p+0X*n0085V*c202B*c15G*c2P*p-0X&a-25V&a+1R Name: Coleman Beck : 1990 M26 MedRec: [id number] AcctNum: [id number] Prepared: ThuApr 22, 2016 22:15 by Interface Page 3 of 4 pMD [facility] EMERGENCY RECORD DISPOSITION (22:02 MDEB) PATIENT: Disposition Type: Discharge, Disposition: *Discharge Home, Patient left the department. PRESCRIPTION No recorded prescriptions IMAGING *DISCHARGE INSTRUCTIONS RECEIPT: Image captured from scanner. (21:57 MDEB) *SUPPLY CHARGE SHEET: Image captured from scanner. (21:57 MDEB) Image captured from scanner. (22:05 MDEB) Brown: BLANQUITA=MD Will, Jareth STERN=ANASTASIA Wren, Ely &a-1R&a+25V*p+0X*k2811G*c202B*c15G*c2P*p-0X&a-25V&a+1R Name: Coleman Beck : 1990 M26 MedRec: [id number] AcctNum: [id number] Prepared: Nanci Apr 22, 2016 22:15 by Interface Page 4 of 4 pMD MTDD
== END 2016-04-22 21:50 | disposition home or self-care (01) ==
LOC: MADERS 19:50
DX: L50.0 Allergic urticaria (principal); Z87.891 Personal history of nicotine dependence
CPT/HCPCS: 96374; A4216; J0171; J1100; J1200; J2930

== ENCOUNTER 2016-06-07 00:37 | Emergency (ER) | payer SELFPAY ==
[2016-06-07] MEDS ORDERED: EPINEPHrine 1 MG/ML VIAL ONE (00:49)
[2016-06-07] MEDS ORDERED: diphenhydrAMINE HCl 50 MG/ML 1 ML VIAL ONE (00:49)
[2016-06-07] MEDS ORDERED: Dexamethasone 10 MG/ML VIAL ONE (00:49)
[2016-06-07] MEDS ORDERED: methylPREDNISolone Sod Succ/PF 125 MG/2 ML VIAL ONE (00:49)
== END 2016-06-07 02:31 | disposition home or self-care (01) ==
LOC: MADERS 00:37
DX: L50.0 Allergic urticaria (principal); Z87.891 Personal history of nicotine dependence
CPT/HCPCS: 94760; 96372; 96374; 96375; J0171; J1100; J1200; J2930

== ENCOUNTER 2016-10-21 13:13 | Emergency (ER) | payer SELFPAY ==
[~2016-10-21 13:13] MED LIST: Sodium Chloride 0.9% 1,000 ML BAG ONE
[2016-10-21] MEDS ORDERED: Ketorolac Tromethamine 30 MG/ML VIAL ONE (13:58)
[2016-10-21] MEDS ORDERED: Ondansetron HCl/PF 4 MG/2 ML Vial ONE (13:58)
[2016-10-21 14:17] LABS: #Eosinphils 0.3 thou/uL (0.0-0.7); #Lymphocytes 1.6 thou/uL (1.20-3.40); #Monocytes 0.4 thou/uL (0.11-0.59); %Basophils 0.7 % (0.0-1.0); %Eosinophils 5.6 % (0.0-10.0); %Lymphocytes 30.4 % (21.0-51.0); %Monocytes 7.7 % (0.0-10.0); %Neutrophils 55.6 % (42.0-75.0); Hemoglobin 13.4 g/dL (14.0-18.0); Mean Corpuscular HGB CONC 33.3 g/dL (32.0-36.0); Mean Corpuscular Hemoglobin 30.4 pg (27.0-31.0); Mean Corpuscular Volume 91.2 fl (80.0-94.0); Mean Platelet Volume 7.9 fL (7.4-10.4); Platelet Count 191 thou/uL (130-400); RBC Distribution Width 11.9 % (11.5-14.5); White Blood Cell (WBC) Count 5.4 thou/uL (4.8-10.8)
[2016-10-21 14:30] LABS: Anion Gap 13 mmol/L (10-20); BUN (Urea Nitrogen) 12 mg/dL (8.9-20.6); Calc. Creatinine Clearance 0 mL/min (70-130); Calcium 8.8 mg/dL (7.8-10.44); Carbon Dioxide 25 mmol/L (22-29); Chloride 105 mmol/L (98-107); Estimated GFR-MDRD 84; Glucose 101 mg/dL (70-105); Potassium 3.5 mmol/L (3.5-5.1); Sodium 139 mmol/L (136-145)
--- NOTE | 2016-10-21 14:30 | CT ---
CT ABDOMEN AND PELVIS NONCONTRAST: History: Left flank pain. FINDINGS: Each renal collecting system and ureter are decompressed without stone apparent. Urinary bladder is incompletely distended. Lack of contrast limits evaluation for other abnormalities. No bowel obstruction or free air are juanita arent. A large amount of stool distends the colon and rectum. IMPRESSION: 1. No CT evidence of urinary tract obstruction or calcification. 2. Constipation. POS: MERRY
[2016-10-21 15:19] LABS: Bilirubin Negative (Negative); Blood, Urine Negative (Negative); Clarity Clear (Clear); Glucose, Urine (Dipstick) Negative (Negative); Leukocyte Negative (Negative); Nitrite Negative (Negative); Protein, Urine (Dipstick) Negative (Neg-Trace)
== END 2016-10-21 15:35 | disposition home or self-care (01) ==
LOC: MADERS 13:13
DX: M54.5 Low back pain (principal); K59.00 Constipation, unspecified; Z87.891 Personal history of nicotine dependence
CPT/HCPCS: 36415; 74176; 80048; 81003; 85025; 96361; 96374; 96375; J1885; J2405; J7050

== ENCOUNTER 2017-03-13 08:46 | Emergency (ER) | payer SELFPAY ==
[2017-03-13 09:18] LABS: #Eosinphils 0.7 thou/uL (0.0-0.7); #Lymphocytes 1.9 thou/uL (1.20-3.40); #Monocytes 0.5 thou/uL (0.11-0.59); #Neutrophils 6.7 thou/uL (1.40-6.50); %Basophils 0.5 % (0.0-1.0); %Eosinophils 6.9 % (0.0-10.0); %Lymphocytes 19.2 % (21.0-51.0); %Monocytes 5.5 % (0.0-10.0); Hemoglobin 13.5 g/dL (14.0-18.0); Mean Corpuscular HGB CONC 34.1 g/dL (32.0-36.0); Mean Corpuscular Hemoglobin 31.4 pg (27.0-31.0); Platelet Count 213 thou/uL (130-400); RBC Distribution Width 12.5 % (11.5-14.5); Red Blood Cell (RBC) Count 4.29 mill/uL (4.70-6.10); White Blood Cell (WBC) Count 9.8 thou/uL (4.8-10.8)
[2017-03-13 09:36] LABS: ALT (SGPT) 18 U/L (8-55); AST (SGOT) 22 U/L (5-34); Alkaline Phosphatase 73 U/L (40-150); Anion Gap 14 mmol/L (10-20); BUN (Urea Nitrogen) 14 mg/dL (8.9-20.6); Bilirubin, Total 0.2 mg/dL (0.2-1.2); Calc. Creatinine Clearance 0 mL/min (70-130); Carbon Dioxide 25 mmol/L (22-29); Chloride 105 mmol/L (98-107); Estimated GFR-MDRD Greater than 90; Globulin 2.7 g/dL (2.4-3.5); Glucose 92 mg/dL (70-105); Potassium 4.1 mmol/L (3.5-5.1); Protein, Total 6.7 g/dL (6.0-8.3); Sodium 140 mmol/L (136-145); Uric Acid 5.1 mg/dL (3.5-7.2)
--- NOTE | 2017-03-13 10:18 | RAD ---
RIGHT ELBOW 4 VIEWS: Date: 03/13/17 PROVIDED CLINICAL HISTORY: Right elbow pain. FINDINGS: There is no evidence for fracture or other acute osseous abnormality. Alignment appears anatomic. Angela nt spaces appear preserved. No evidence for elbow joint capsular distention. IMPRESSION: No evidence for an acute osseous abnormality. POS: MERRY
== END 2017-03-13 10:40 | disposition home or self-care (01) ==
LOC: MADERS 08:46
DX: M19.021 Primary osteoarthritis, right elbow (principal); F17.210 Nicotine dependence, cigarettes, uncomplicated
CPT/HCPCS: 80053; 84550; 85025; 85652; 96372; J1040

== ENCOUNTER 2017-03-27 06:57 | Emergency (ER) | payer SELFPAY ==
[2017-03-27] MEDS ORDERED: diphenhydrAMINE 50 MG/ML VIAL ONE ×2 (07:07→19:24)
[2017-03-27] MEDS ORDERED: Dexamethasone 10 MG/ML VIAL ONE ×2 (07:13→19:24)
[2017-03-27] MEDS ORDERED: EPINEPHrine 1 MG/ML AMP ONE ×2 (07:13→19:24)
[2017-03-27] MEDS ORDERED: methylPREDNISolone Sod Succ/PF 125 MG/2 ML VIAL ONE (07:13)
[2017-03-27] MEDS ORDERED: Famotidine In NaCl 20 mg/50 ml Premix Bag ONE (19:24)
== END 2017-03-27 11:45 | disposition home or self-care (01) ==
LOC: MADERS 06:57
DX: L50.0 Allergic urticaria (principal); Z87.891 Personal history of nicotine dependence
CPT/HCPCS: 96372; 96374; 96375; J0171; J1100; J1200; J2930; J2997

== ENCOUNTER 2017-03-27 19:06 | Emergency (ER) | payer SELFPAY ==
[~2017-03-27 19:06] MED LIST changes: +Dexamethasone 10 MG/ML VIAL ONE; +EPINEPHrine 1 MG/ML AMP ONE; +Famotidine In NaCl 20 mg/50 ml Premix Bag ONE; -Sodium Chloride 0.9% 1,000 ML BAG ONE; +diphenhydrAMINE 50 MG/ML VIAL ONE
== END 2017-03-27 23:22 | disposition home or self-care (01) ==
LOC: MADERS 19:06
DX: L50.0 Allergic urticaria (principal); T38.0X5A Adverse effect of glucocorticoids and synthetic analogues, initial encounter; F17.210 Nicotine dependence, cigarettes, uncomplicated
CPT/HCPCS: 96365; 96372; 96375; J0171; J1100; J1200

== ENCOUNTER 2017-03-28 13:57 | Emergency (ER) | payer SELFPAY ==
[2017-03-28] MEDS ORDERED: EPINEPHrine 1 MG/ML AMP ONE (14:17)
== END 2017-03-28 16:45 | disposition home or self-care (01) ==
LOC: MADERS 13:57
DX: T78.2XXA Anaphylactic shock, unspecified, initial encounter (principal); F17.210 Nicotine dependence, cigarettes, uncomplicated
CPT/HCPCS: 87081; 87430; 96372; J0171

== ENCOUNTER 2017-05-08 21:00 | Emergency (ER) | payer SELFPAY ==
[2017-05-08] MEDS ORDERED: Tobramycin Sulfate 0.3% Ophth Susp 5 ml Bottle ONE (21:41)
[2017-05-08] MEDS ORDERED: Cephalexin 500 MG CAP ONE (21:41)
== END 2017-05-08 21:50 | disposition home or self-care (01) ==
LOC: MADERS 21:00
DX: H10.9 Unspecified conjunctivitis (principal); F17.210 Nicotine dependence, cigarettes, uncomplicated
CPT/HCPCS: 99283

== ENCOUNTER → 2017-07-25 | Emergency (ER) | payer SELFPAY ==
[~2017-07-25] MED LIST changes: -Dexamethasone 10 MG/ML VIAL ONE; -EPINEPHrine 1 MG/ML AMP ONE; -Famotidine In NaCl 20 mg/50 ml Premix Bag ONE; +HYDROcodone/Acetaminophen 10/325 mg Tablet ONE; +Naproxen 500 MG TAB ONE; -diphenhydrAMINE 50 MG/ML VIAL ONE
--- NOTE | 2017-07-25 17:00 | RAD ---
LEFT ANKLE THREE VIEWS: 07/25/17 HISTORY: 27-year-old male with history of pain and strain. FINDINGS/IMPRESSION: No fracture, dislocation or other significant acute osseous abnormality. POS: KYLIE
--- NOTE | 2017-07-25 17:01 | RAD ---
LEFT FOOT THREE VIEWS: 07/25/17 HISTORY: 27-year-old male with history of left foot pain and strain. FINDINGS/IMPRESSION: No fracture, dislocation, or other significant acute process. POS: KYLIE
== END ==
LOC: MADERS 15:45
DX: S93.402A Sprain of unspecified ligament of left ankle, initial encounter (principal); S93.602A Unspecified sprain of left foot, initial encounter; F17.210 Nicotine dependence, cigarettes, uncomplicated; X50.9XXA Other and unspecified overexertion or strenuous movements or postures, initial encounter

== ENCOUNTER 2017-12-18 18:12 | Emergency (ER) | payer SELFPAY ==
[2017-12-18] MEDS ORDERED: Bacitracin Zinc 1 Packet ONE (18:52)
[2017-12-18] MEDS ORDERED: Cephalexin 500 MG CAP ONE (18:52)
[2017-12-18] MEDS ORDERED: Cephalexin 250 MG CAP ONE (18:52)
[2017-12-18] MEDS ORDERED: Adacel (T-DAP) 0.5 ML VIAL ONE (18:52)
== END 2017-12-18 19:11 | disposition home or self-care (01) ==
LOC: MADERS 18:12
DX: L03.116 Cellulitis of left lower limb (principal); F17.210 Nicotine dependence, cigarettes, uncomplicated
CPT/HCPCS: 90471; 90715

== ENCOUNTER 2017-12-29 16:56 | Emergency (ER) | payer SELFPAY | END 2017-12-29 17:40 | disposition home or self-care (01) | LOC: MADERS 16:56 | DX: L03.115 Cellulitis of right lower limb (principal); L97.319 Non-pressure chronic ulcer of right ankle with unspecified severity; F17.210 Nicotine dependence, cigarettes, uncomplicated | CPT/HCPCS: 99282 ==

== ENCOUNTER 2018-01-28 15:49 | Emergency (ER) | payer SELFPAY ==
[2018-01-28] MEDS ORDERED: diphenhydrAMINE 25 MG CAP ONE (16:19)
[2018-01-28] MEDS ORDERED: Ibuprofen 800 MG TAB ONE (16:19)
[2018-01-28] MEDS ORDERED: Dexamethasone 4 MG TAB ONE (16:19)
[2018-01-28] MEDS ORDERED: Famotidine 20 MG TAB ONE (16:19)
== END 2018-01-28 16:46 | disposition home or self-care (01) ==
LOC: MADERS 15:49
DX: L25.8 Unspecified contact dermatitis due to other agents (principal); F17.210 Nicotine dependence, cigarettes, uncomplicated
CPT/HCPCS: 99282; J8540

== ENCOUNTER 2018-02-08 14:00 | Emergency (ER) | payer SELFPAY | END 2018-02-08 15:56 | disposition home or self-care (01) | LOC: MADERS 14:00 | DX: L73.9 Follicular disorder, unspecified (principal); B86 Scabies; F17.210 Nicotine dependence, cigarettes, uncomplicated | CPT/HCPCS: 99282 ==

== ENCOUNTER 2018-11-01 11:07 | Emergency (ER) | payer SELFPAY ==
[2018-11-01] MEDS ORDERED: Ondansetron ODT 4 MG TAB ONE (11:24)
[2018-11-01] MEDS ORDERED: Sulfameth/Trimethoprim DS 800-160mg TAB ONE (11:33)
[2018-11-01] MEDS ORDERED: Cephalexin 500 MG CAP ONE (11:33)
== END 2018-11-01 12:11 | disposition home or self-care (01) ==
LOC: MADERS 11:07
DX: L03.116 Cellulitis of left lower limb (principal); F17.210 Nicotine dependence, cigarettes, uncomplicated
CPT/HCPCS: 99283; Q0162